=== PATIENT | female | born 2000 | race Caucasian/White ===

== ENCOUNTER 2022-07-05 22:24 | Emergency (ER) | payer OTHER ==
[~2022-07-05] VITALS: Ht 165.1 cm; Wt 64.9 kg
[2022-07-05 22:26] VITALS: BP 122/71
--- NOTE | 2022-07-05 22:26 | NUR ---
Patient BIB by P. C/O pre-book x today. Patient placed to chair B.
--- NOTE | 2022-07-05 23:01 | NUR ---
Patient being evaluated by physician at bedside.
[2022-07-05 23:11] VITALS: BP 122/71
--- NOTE | 2022-07-05 23:11 | NUR ---
Patient D/C to custody.
== END 2022-07-05 23:11 ==
LOC: MED 22:24
DX: Z02.89 Encounter for other administrative examinations (principal); F32.9 Major depressive disorder, single episode, unspecified; V49.9XXA Car occupant (driver) (passenger) injured in unspecified traffic accident, initial encounter; Y93.89 Activity, other specified; Y92.410 Unspecified street and highway as the place of occurrence of the external cause; Y99.8 Other external cause status
CPT/HCPCS: 99283